=== PATIENT | male | born 1995 | race Caucasian/White ===

== ENCOUNTER 2018-06-02 21:30 | Inpatient (IN) | payer OTHER ==
[2018-06-02] MEDS ORDERED: ONDANSETRON 4 MG INJ IV (23:00)
[2018-06-02] MEDS ORDERED: PROMETHAZINE 12.5 MG SUPP PR (23:00)
[2018-06-02] MEDS ORDERED: ALBUTEROL/IPRATROPIUM (NEB) 3 ML AMP HHN (23:30)
[2018-06-02] MEDS: SOD CHLORIDE 0.9% 1,000 ML IV (23:35)
[2018-06-02] MEDS: PIPER-TAZO 3.375 GM IV (PMX) 100 ML IVPB (23:36)
[2018-06-02] MEDS: ACETAMINOPHEN 650 MG SUPP PR (23:39)
[2018-06-03] MEDS: ALBUTEROL/IPRATROPIUM (NEB) 3 ML AMP HHN ×5 (01:00→21:19)
[2018-06-03] MEDS: HYDROmorphONE 0.5 MG/0.5 ML SYG IV (04:52)
[2018-06-03] MEDS: PIPER-TAZO 3.375 GM IV (PMX) 100 ML IVPB ×3 (04:52→21:14)
[2018-06-03] MEDS: MULTIVITAMINS/MINERALS TAB PO (08:37)
[2018-06-03] MEDS: ENOXAPARIN 40 MG/0.4 ML SYG SC (08:43)
[2018-06-03 08:57] LABS: ADD MAN DIFF? NO
[2018-06-03 08:58] LABS: BASOPHILS % 0.4 % (0.0-2.0); EOSINOPHILS # 0.4 10^3/ul (0.0-0.5); EOSINOPHILS % 3.9 % (0.0-7.0); HEMATOCRIT 21.7 % (42.0-52.0); HEMOGLOBIN 7.4 g/dl (14.0-18.0); LYMPHOCYTES # 1.5 10^3/ul (0.8-2.9); LYMPHOCYTES % 15.9 % (15.0-51.0); MEAN CORPUSCULAR HEMOGLOBIN 32.7 pg (29.0-33.0); MEAN CORPUSCULAR HGB CONC 34.1 g/dl (32.0-37.0); MEAN PLATELET VOLUME 9.8 fl (7.4-10.4); MONOCYTE # 0.9 10^3/ul (0.3-0.9); MONOCYTES % 9.8 % (0.0-11.0); NEUTROPHIL # 6.3 10^3/ul (1.6-7.5); NUCLEATED RED BLOOD CELLS% 0.3 /100WBC (0.0-0.0); PLATELET COUNT 289 10^3/UL (140-415); RED BLOOD COUNT 2.26 10^6/ul (4.70-6.10); RED CELL DISTRIBUTION WIDTH 12.7 % (11.5-14.5)
[2018-06-03 08:58] LABS: WHITE BLOOD COUNT 9.3 10^3/ul (4.8-10.8)
[2018-06-03 09:29] LABS: ALANINE AMINOTRANSFERASE 61 IU/L (13-69); ALBUMIN 3.1 g/dl (3.3-4.9); ALBUMIN/GLOBULIN RATIO 1.03; ALKALINE PHOSPHATASE 65 IU/L (42-121); ANION GAP 7 (5-13); ASPARTATE AMINO TRANSFERASE 59 IU/L (15-46); BILIRUBIN,INDIRECT 0.9 mg/dl (0-1.1); BILIRUBIN,TOTAL 0.9 mg/dl (0.2-1.3); BLOOD UREA NITROGEN 15 mg/dl (7-20); CALCIUM 8.5 mg/dl (8.4-10.2); CARBON DIOXIDE 25 mmol/L (21-31); CHLORIDE 106 mmol/L (97-110); Estimated GFR > 60 mL/min (>60); GLUCOSE 92 mg/dl (70-220); POTASSIUM 3.6 mmol/L (3.5-5.1); SODIUM 138 mmol/L (135-144); TOTAL PROTEIN 6.1 g/dl (6.1-8.1)
[2018-06-03] MEDS: PANTOPRAZOLE (EC) 40 MG TAB PO (14:33)
[2018-06-03] MEDS: SOD FERRIC GLUC COMPLX 125 MG in SOD CHLORIDE 0.9% 100 ML IVPB (19:01)
[2018-06-03] MEDS: HYDROCODONE/APAP (5/325) TAB PO (22:11)
[2018-06-03] MEDS: SOD CHLORIDE 0.9% 1,000 ML IV (22:12)
[2018-06-04] MEDS: PIPER-TAZO 3.375 GM IV (PMX) 100 ML IVPB ×4 (01:55→17:50)
[2018-06-04] MEDS: ACETAMINOPHEN 325 MG TAB PO ×2 (03:48→14:42)
[2018-06-04] MEDS: morphine SULFATE/PF (2 MG/2 ML) SYG IV (04:00)
[2018-06-04 05:08] LABS: ADD MAN DIFF? NO
[2018-06-04 05:12] LABS: BASOPHILS % 0.5 % (0.0-2.0); EOSINOPHILS # 0.3 10^3/ul (0.0-0.5); HEMATOCRIT 22.2 % (42.0-52.0); HEMOGLOBIN 7.5 g/dl (14.0-18.0); LYMPHOCYTES # 1.4 10^3/ul (0.8-2.9); LYMPHOCYTES % 15.8 % (15.0-51.0); MEAN CORPUSCULAR HEMOGLOBIN 31.9 pg (29.0-33.0); MEAN CORPUSCULAR HGB CONC 33.8 g/dl (32.0-37.0); MEAN CORPUSCULAR VOLUME 94.5 fl (82.0-101.0); MEAN PLATELET VOLUME 9.2 fl (7.4-10.4); MONOCYTE # 0.7 10^3/ul (0.3-0.9); MONOCYTES % 8.4 % (0.0-11.0); NEUTROPHILS % 69.6 % (39.0-77.0); NUCLEATED RED BLOOD CELLS% 0.5 /100WBC (0.0-0.0); PLATELET COUNT 332 10^3/UL (140-415); RED BLOOD COUNT 2.35 10^6/ul (4.70-6.10); RED CELL DISTRIBUTION WIDTH 12.6 % (11.5-14.5)
[2018-06-04 05:12] LABS: WHITE BLOOD COUNT 8.6 10^3/ul (4.8-10.8)
[2018-06-04 05:29] LABS: ANION GAP 12 (5-13); BLOOD UREA NITROGEN 10 mg/dl (7-20); CALCIUM 8.4 mg/dl (8.4-10.2); CARBON DIOXIDE 25 mmol/L (21-31); CHLORIDE 103 mmol/L (97-110); CREATININE 0.73 mg/dl (0.61-1.24); Estimated GFR > 60 mL/min (>60); GLUCOSE 98 mg/dl (70-220); POTASSIUM 3.8 mmol/L (3.5-5.1); SODIUM 140 mmol/L (135-144)
[2018-06-04] MEDS: PANTOPRAZOLE (EC) 40 MG TAB PO (06:54)
[2018-06-04] MEDS: ALBUTEROL/IPRATROPIUM (NEB) 3 ML AMP HHN ×4 (09:18→20:37)
[2018-06-04] MEDS: MULTIVITAMINS/MINERALS TAB PO (09:46)
[2018-06-04] MEDS: HYDROCODONE/APAP (5/325) TAB PO ×3 (10:01→21:57)
[2018-06-04] MEDS: CHOLECALCIFEROL 2,000 UNIT CAP PO (14:42)
[2018-06-04] MEDS: SOD FERRIC GLUC COMPLX 125 MG in SOD CHLORIDE 0.9% 100 ML IVPB (14:42)
[2018-06-05] MEDS: PIPER-TAZO 3.375 GM IV (PMX) 100 ML IVPB ×5 (00:20→23:50)
[2018-06-05 04:51] LABS: ADD MAN DIFF? NO
[2018-06-05 04:55] LABS: WHITE BLOOD COUNT 13.5 10^3/ul (4.8-10.8)
[2018-06-05 04:55] LABS: BASOPHIL # 0.1 10^3/ul (0.0-0.1); BASOPHILS % 0.4 % (0.0-2.0); EOSINOPHILS # 0.2 10^3/ul (0.0-0.5); EOSINOPHILS % 1.8 % (0.0-7.0); HEMATOCRIT 24.7 % (42.0-52.0); HEMOGLOBIN 8.1 g/dl (14.0-18.0); LYMPHOCYTES # 1.8 10^3/ul (0.8-2.9); LYMPHOCYTES % 13.5 % (15.0-51.0); MEAN CORPUSCULAR HEMOGLOBIN 31.5 pg (29.0-33.0); MEAN CORPUSCULAR HGB CONC 32.8 g/dl (32.0-37.0); MEAN CORPUSCULAR VOLUME 96.1 fl (82.0-101.0); MEAN PLATELET VOLUME 9.3 fl (7.4-10.4); MONOCYTE # 0.8 10^3/ul (0.3-0.9); MONOCYTES % 6.2 % (0.0-11.0); NEUTROPHIL # 10.3 10^3/ul (1.6-7.5); NEUTROPHILS % 76.5 % (39.0-77.0); NUCLEATED RED BLOOD CELLS% 0.2 /100WBC (0.0-0.0); PLATELET COUNT 412 10^3/UL (140-415); RED BLOOD COUNT 2.57 10^6/ul (4.70-6.10); RED CELL DISTRIBUTION WIDTH 12.7 % (11.5-14.5)
[2018-06-05 05:22] LABS: ANION GAP 9 (5-13); BLOOD UREA NITROGEN 11 mg/dl (7-20); CARBON DIOXIDE 25 mmol/L (21-31); CHLORIDE 106 mmol/L (97-110); Estimated GFR > 60 mL/min (>60); GLUCOSE 99 mg/dl (70-220); POTASSIUM 4.1 mmol/L (3.5-5.1); SODIUM 140 mmol/L (135-144)
[2018-06-05] MEDS: PANTOPRAZOLE (EC) 40 MG TAB PO (06:40)
[2018-06-05] MEDS: ALBUTEROL/IPRATROPIUM (NEB) 3 ML AMP HHN ×2 (08:09→13:56)
[2018-06-05] MEDS: CHOLECALCIFEROL 2,000 UNIT CAP PO (09:28)
[2018-06-05] MEDS: MULTIVITAMINS/MINERALS TAB PO (09:30)
[2018-06-05] MEDS: SOD FERRIC GLUC COMPLX 125 MG in SOD CHLORIDE 0.9% 100 ML IVPB (13:47)
[2018-06-05] MEDS: ACETAMINOPHEN 325 MG TAB PO ×2 (13:50→20:32)
[2018-06-06 05:35] LABS: ADD MAN DIFF? NO
[2018-06-06 05:42] LABS: WHITE BLOOD COUNT 15.9 10^3/ul (4.8-10.8)
[2018-06-06 05:42] LABS: BASOPHIL # 0.1 10^3/ul (0.0-0.1); BASOPHILS % 0.3 % (0.0-2.0); EOSINOPHILS # 0.3 10^3/ul (0.0-0.5); EOSINOPHILS % 1.8 % (0.0-7.0); HEMATOCRIT 24.9 % (42.0-52.0); HEMOGLOBIN 8.3 g/dl (14.0-18.0); LYMPHOCYTES # 2.1 10^3/ul (0.8-2.9); LYMPHOCYTES % 13.4 % (15.0-51.0); MEAN CORPUSCULAR HEMOGLOBIN 32.4 pg (29.0-33.0); MEAN CORPUSCULAR HGB CONC 33.3 g/dl (32.0-37.0); MEAN CORPUSCULAR VOLUME 97.3 fl (82.0-101.0); MEAN PLATELET VOLUME 9.4 fl (7.4-10.4); MONOCYTE # 0.8 10^3/ul (0.3-0.9); MONOCYTES % 4.8 % (0.0-11.0); NEUTROPHIL # 12.4 10^3/ul (1.6-7.5); NEUTROPHILS % 78.3 % (39.0-77.0); PLATELET COUNT 481 10^3/UL (140-415); RED BLOOD COUNT 2.56 10^6/ul (4.70-6.10); RED CELL DISTRIBUTION WIDTH 12.9 % (11.5-14.5)
[2018-06-06] MEDS: PANTOPRAZOLE (EC) 40 MG TAB PO (06:15)
[2018-06-06] MEDS: ACETAMINOPHEN 325 MG TAB PO ×3 (06:15→21:23)
[2018-06-06] MEDS: PIPER-TAZO 3.375 GM IV (PMX) 100 ML IVPB (06:16)
[2018-06-06] MEDS: CHOLECALCIFEROL 2,000 UNIT CAP PO (11:55)
[2018-06-06] MEDS: MULTIVITAMINS/MINERALS TAB PO (11:55)
[2018-06-06 14:47] LABS: ADD UMIC NO; UR ASCORBIC ACID NEGATIVE (NEGATIVE); UR BILIRUBIN (Dip) NEGATIVE (NEGATIVE); UR BLOOD (Dip) NEGATIVE (NEGATIVE); UR CLARITY SLIGHTLY CLOUDY (CLEAR); UR COLOR AMBER (YELLOW); UR GLUCOSE (Dip) NEGATIVE (NEGATIVE); UR KETONES (Dip) TRACE mg/dL (NEGATIVE); UR LEUKOCYTE ESTERASE (Dip) NEGATIVE Leu/ul (NEGATIVE); UR NITRITE (Dip) NEGATIVE (NEGATIVE); UR RBC 1 /HPF (0-5); UR SPECIFIC GRAVITY (Dip) 1.032 (1.003-1.030); UR TOTAL PROTEIN (Dip) NEGATIVE (NEGATIVE); UR UROBILINOGEN (Dip) NEGATIVE (NEGATIVE); UR WBC 1 /HPF (0-5)
[2018-06-07] MEDS: ACETAMINOPHEN 325 MG TAB PO ×3 (01:34→22:49)
[2018-06-07 08:41] LABS: ADD MAN DIFF? NO
[2018-06-07 08:43] LABS: WHITE BLOOD COUNT 13.3 10^3/ul (4.8-10.8)
[2018-06-07 08:43] LABS: BASOPHILS % 0.2 % (0.0-2.0); EOSINOPHILS # 0.3 10^3/ul (0.0-0.5); EOSINOPHILS % 2.5 % (0.0-7.0); HEMATOCRIT 24.7 % (42.0-52.0); HEMOGLOBIN 8.1 g/dl (14.0-18.0); LYMPHOCYTES # 1.8 10^3/ul (0.8-2.9); LYMPHOCYTES % 13.1 % (15.0-51.0); MEAN CORPUSCULAR HEMOGLOBIN 31.6 pg (29.0-33.0); MEAN CORPUSCULAR HGB CONC 32.8 g/dl (32.0-37.0); MEAN CORPUSCULAR VOLUME 96.5 fl (82.0-101.0); MEAN PLATELET VOLUME 8.9 fl (7.4-10.4); MONOCYTE # 0.6 10^3/ul (0.3-0.9); MONOCYTES % 4.8 % (0.0-11.0); NEUTROPHIL # 10.4 10^3/ul (1.6-7.5); NEUTROPHILS % 78.1 % (39.0-77.0); PLATELET COUNT 509 10^3/UL (140-415); RED BLOOD COUNT 2.56 10^6/ul (4.70-6.10); RED CELL DISTRIBUTION WIDTH 13.3 % (11.5-14.5)
[2018-06-07 09:04] LABS: ANION GAP 11 (5-13); BLOOD UREA NITROGEN 12 mg/dl (7-20); CARBON DIOXIDE 25 mmol/L (21-31); CHLORIDE 105 mmol/L (97-110); CREATININE 0.66 mg/dl (0.61-1.24); Estimated GFR > 60 mL/min (>60); GLUCOSE 99 mg/dl (70-220); POTASSIUM 3.8 mmol/L (3.5-5.1); SODIUM 141 mmol/L (135-144)
[2018-06-07 09:05] LABS: PHOSPHORUS 4.3 mg/dl (2.5-4.9)
[2018-06-07 09:05] LABS: MAGNESIUM 2.2 mg/dl (1.7-2.5)
[2018-06-07] MEDS: PANTOPRAZOLE (EC) 40 MG TAB PO (09:18)
[2018-06-07] MEDS: MULTIVITAMINS/MINERALS TAB PO (09:18)
[2018-06-07] MEDS: CHOLECALCIFEROL 2,000 UNIT CAP PO (11:15)
[2018-06-07 15:44] LABS: D-DIMER 8305.25 ng/ml (<460)
[2018-06-07 16:00] LABS: ERYTHROCYTE SEDIMENTATION RATE 115 mm/Hr (0-15)
[2018-06-08] MEDS: PANTOPRAZOLE (EC) 40 MG TAB PO (05:13)
[2018-06-08] MEDS: ACETAMINOPHEN 325 MG TAB PO ×4 (05:16→21:41)
[2018-06-08] MEDS: MULTIVITAMINS/MINERALS TAB PO (09:00)
[2018-06-08] MEDS: CHOLECALCIFEROL 2,000 UNIT CAP PO (09:10)
[2018-06-08] MEDS: ASPIRIN 81 MG TAB PO (09:11)
[2018-06-08 15:39] LABS: RAPID PLASMA REAGIN NONREACTIVE (NR)
[2018-06-09] MEDS: PANTOPRAZOLE (EC) 40 MG TAB PO (06:00)
[2018-06-09] MEDS: ACETAMINOPHEN 325 MG TAB PO (07:06)
[2018-06-09] MEDS: ASPIRIN 81 MG TAB PO (09:38)
[2018-06-09] MEDS: MULTIVITAMINS/MINERALS TAB PO (09:38)
[2018-06-09] MEDS: CHOLECALCIFEROL 2,000 UNIT CAP PO (09:38)
[2018-06-09 15:52] LABS: HOMOCYSTEINE - CARDIOVASCULAR 5.8 umol/L (<11.4)
[2018-06-10 12:17] LABS: B2 GLYCOPROTEIN I AB (IGA) <9 SAU (< OR = 20); B2 GLYCOPROTEIN I AB (IGG) <9 SGU (< OR = 20); B2 GLYCOPROTEIN I AB (IGM) <9 SMU (< OR = 20)
[2018-06-10 13:01] LABS: CARDIOLIPIN AB - IGA <11 APL; CARDIOLIPIN AB - IGG <14 GPL; CARDIOLIPIN AB - IGM <12 MPL
[2018-06-10 18:27] LABS: FACTOR VIII ACTIVITY 159 % normal (50-180)
[2018-06-11 20:06] LABS: ANTI-THROMBIN III 31 mg/dL (19-30)
== END 2018-06-09 14:53 | disposition home health service (06) | DRG 963 ==
LOC: MS1 06-03 16:30 → ICU 06-07 07:00 → TEL 21:30
DX: T79.1XXA Fat embolism (traumatic), initial encounter (principal); S72.351A Displaced comminuted fracture of shaft of right femur, initial encounter for closed fracture; J69.0 Pneumonitis due to inhalation of food and vomit; S06.6X9A Traumatic subarachnoid hemorrhage with loss of consciousness of unspecified duration, initial encounter; F07.81 Postconcussional syndrome; D64.9 Anemia, unspecified
CPT/HCPCS: 70450; 70551; 73510; 73550; 80048; 80053; 81001; 81003; 81240; 83090; 83735; 83890; 84100; 85025; 85240; 85300; 85302; 85305; 85378; 85651; 86146; 86147; 86592; 87081; 93005; 93306; 94640; 94664; 97116; 97163; 97164; 97530